=== PATIENT | female | born 1960 | race Caucasian/White ===

== ENCOUNTER → 2017-08-17 | Outpatient (CLI) | payer BC ==
[~2017-08-17] MED LIST: ESTROVEN MAX400 MCG PO; MASON NATURAL1200 MG PO; NIASPAN1000 MG PO; OSPHENA PO; TAPAZOLE5 MG PO; ZOMIG ZMT PO
== END ==
LOC: MC.RAD 13:38
DX: Z12.31 Encounter for screening mammogram for malignant neoplasm of breast (principal)

== ENCOUNTER → 2021-11-22 | Outpatient (CLI) | payer BC | LOC: MC.RAD 07:08 | DX: Z12.31 Encounter for screening mammogram for malignant neoplasm of breast (principal) ==